=== PATIENT | male | born 1965 | race Caucasian/White ===

== ENCOUNTER 2016-05-07 09:21 | Day surgery (SDC) | payer OTHER ==
[~2016-05-07] VITALS: Ht 185.4 cm; Wt 88.5 kg
[~2016-05-07 09:21] MED LIST: 0.9% Sodium Chloride 1,000 ML IV SCH; ASPI-973 PO; CHOL100045 PO; FENO54TA4 PO; GLPZ5T PO; HYDR25SU31 RC; HYDR25TA4 PO; METF500T4 PO; SIMV40TA5 PO; Sodium Chloride LOK Flush 10 mL Syringe IV PRN; TRAM50TA2 PO; fentaNYL-PF 50 mCg/mL 2 mL Inj IVPUSH PRN
[2016-05-07] MEDS ORDERED: LIP40 PO (09:47)
[2016-05-07 09:51] VITALS: BP 135/89; PULSE 78; RESP 19; O2SAT 95
[2016-05-07] MEDS ORDERED: 0.9% Sodium Chloride 1,000 ML IV ONE (10:54)
[2016-05-07 10:59] VITALS: BP 124/74; PULSE 71; RESP 16; O2SAT 97
[2016-05-07 11:09] VITALS: BP 120/70; PULSE 70; RESP 16; O2SAT 98
[2016-05-07 11:19] VITALS: BP 125/81; PULSE 80; RESP 14; O2SAT 98
--- NOTE | 2016-05-07 11:21 | ENDO ---
[address] [address] ENDOSCOPY PROCEDURE PATIENT: PEPE CHAIDEZ : 1965 MR#: [id number] ADMIT: 05/07/2016 JOB ID: [id number] PREOPERATIVE DIAGNOSIS: Recurrent perirectal abscess. POSTOPERATIVE DIAGNOSES: 1. Pedunculated sigmoid colon polyp. 2. Sigmoid diverticulosis. 3. 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 OPERATION: Colonoscopy to cecum with snare polypectomy with cautery. SURGEON: Lauro Frost MD INDICATIONS: The patient is a 51-year-old man who has a history of a recurrent perirectal abscess. Because of that it was elected to do a colonoscopy to rule out Crohn disease. FINDINGS: He had a fair prep. The scope was advanced to the cecum. The scope was withdrawn over 6 minutes and 56 seconds. As the scope was being advanced, a pedunculated polyp measuring 6-7 mm in the sigmoid colon was identified, removed with a snare and cautery, and retrieved. No other polyps were identified. In addition to the sigmoid diverticulosis and the polyp there were no other abnormalities. Retroflexed views of the rectum showed no evidence of inflammatory bowel disease, and I could not identify the internal side of the fistula. PROCEDURE: The procedure and sedation plan was discussed with the patient and nursing staff, and a procedural time-out was held. A digital rectal exam was performed. He received 7 mg of Versed and 150 mcg of fentanyl. The Olympus PCF H 180 AL video colonoscope was passed transanally, advanced to the cecum, with results of procedures as discussed above. IMPRESSION: 1. Pedunculated cecal polyp. Pathology pending. 2. Sigmoid diverticulosis. 3. 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 PLAN: Tomorrow he is going to the operating room for evaluation under anesthesia with possible fistulotomy. Based on this study, he would need to have a colonoscopy in five years.
[2016-05-08] MEDS ORDERED: SIMV40TA5 PO (09:13)
--- NOTE | 2016-05-08 14:58 | PATH ---
SURGICAL PATHOLOGY Attending Physician:Valeria Doran CASE STATUS: Signed Out PATIENT NAME: PEPE CHAIDEZ PID: [id number] : 1965 DATE COLLECTED:05/07/2016 17:28 SPECIMEN: Colon, Biopsy CLINICAL HISTORY: A: SIGMOID POLYP FINAL DIAGNOSIS: Sigmoid Colon Polyp: Tubular adenoma. ICD10: D12.5 GROSS DESCRIPTION: The specimen is received in one formalin filled container labeled with the patient's name, sublabeled "sigmoid polyp" and consists of a 0.6 x 0.5 x 0.5 CM portion of tissue which is entirely submitted in one cassette. 05/07/[address] [facility] ICD-9 CODES: CPT CODES: 1: 93331 Electronically Signed Out Bossman Momin MD [facility] Pathology [facility] [address], [place] [address] Technical component performed at [facility], [facility] [address], [place], [address]
== END 2016-05-07 23:59 | disposition home or self-care (01) ==
LOC: END 09:21
PROVIDERS: ATTEND Surgery
DX: D12.5 Benign neoplasm of sigmoid colon (principal); K57.30 Diverticulosis of large intestine without perforation or abscess without bleeding; K61.1 Rectal abscess; E11.9 Type 2 diabetes mellitus without complications; I10 Essential (primary) hypertension; F17.210 Nicotine dependence, cigarettes, uncomplicated; Z79.82 Long term (current) use of aspirin; Z79.899 Other long term (current) drug therapy
CPT/HCPCS: 45385; 99153; G0500; J2250; J3010; J7030

== ENCOUNTER 2016-05-08 08:52 | Day surgery (SDC) | payer OTHER ==
[~2016-05-08] VITALS: Ht 185.4 cm; Wt 88.6 kg
[2016-05-08] VITALS (8 sets, daily range): BP systolic 117–140; BP diastolic 67–92; PULSE 73–85; RESP 12–18; O2SAT 94–100
[~2016-05-08 08:52] MED LIST changes: -0.9% Sodium Chloride 1,000 ML IV SCH; +CeFAZolin 2 Gm/50 mL D5W IV Premix IV ONE; -HYDR25SU31 RC; +LIP40 PO; -SIMV40TA5 PO; -Sodium Chloride LOK Flush 10 mL Syringe IV PRN; -fentaNYL-PF 50 mCg/mL 2 mL Inj IVPUSH PRN
[2016-05-08] MEDS ORDERED: Ondansetron 2 mg/mL 2 mL Inj ONE (08:53)
[2016-05-08] MEDS ORDERED: fentaNYL-PF 50 mCg/mL 2 mL Inj ONE (08:53)
[2016-05-08] MEDS ORDERED: Propofol 10,000 mCg/mL 20 mL Inj ONE (08:53)
[2016-05-08] MEDS: Lactated Ringer's 1,000 ML IV SCH ×2 (08:55→11:27)
[2016-05-08] MEDS ORDERED: SIMV40TA5 PO (09:13)
--- NOTE | 2016-05-08 11:19 | PCM.HPANE ---
Patient Data Surgeon Admitting Provider: Attending Provider:Lauro Frost MD Primary Care Physician:Farhan Carney MD Other Provider:Elba Diana Anesthesia Reason for Visit Perirectal Abscess Ht/WT & BMI Weight (Kilograms): 88.6 Body Mass Index .00 Allergies Coded Allergies: No Known Drug Allergies (Verified Allergy, Unknown, 05/06/16) Past Anesthesia History Anesthesia History: Denies:: Anesthesia Reactions, Fam Anesthesia Reaction, Malignant Hyperthermia Diabetes History Hx Diabetes?: Yes Type of Diabetes: Type II Glycemic Control: Oral Medication Current Bedside Blood Glucose: 258 MRSA MRSA: No Medications Blood Thinner: Aspirin Hypertension Medication: Yes (HCTZ) Home Meds Incl Beta Barbra: No Reported Medications Simvastatin 40 Mg Colskk52 Mg PO HS 30 Days Ref 0 05/08/16 Cholecalciferol (Vitamin D3) (Vitamin D)1,000 Unit Capsule1,000 Unit PO DAILY # 1 BOTTLE Ref 0 05/06/16 Tramadol 50 Mg Wphjbb82 Mg PO DAILY PRN For Pain Ref 0 05/06/16 Metformin 500 Mg Fjhnpl149 Mg PO BID Ref 0 05/06/16 Hydrochlorothiazide 25 Mg Cuqngf05 Mg PO DAILY 30 Days Ref 0 05/06/16 Glipizide 5 Mg Tablet5 Mg PO DAILY 30 Days 05/06/16 Fenofibrate (Lofibra)54 Mg Ctyaxe84 Mg PO DAILY 05/06/16 Aspirin 81 Mg Hajbui67 Mg PO DAILY Ref 0 05/06/16 Discontinued Reported Medications Atorvastatin (Lipitor)40 Mg Gfrlqu21 Mg PO DAILY Ref 0 05/07/16 Simvastatin 40 Mg Zmrror87 Mg PO HS 30 Days Ref 0 05/06/16 Hydrocortisone Acetate (Anusol-Hc)25 Mg Supp.rect25 Mg RC BID 05/06/16 History History of ENT Problems?: Yes HEENT History: Positive for:: Hearing Problem Denies:: Cataracts (S/P RT EYE PROCEDURE) Hx of Heart Problems?: Yes Cardiovascular History: Positive for:: Hypertension Denies:: Heart Murmur Hx of Respiratory Problem?: No Respiratory History: Positive for:: Use of C-PAP Machine (SIMI+ W/ CPAP) Hx Neurologic Problems?: No Neurological History: Denies:: CVA Hx of GI Problems?: Yes Gastrointestinal History: Positive for:: Gall Bladder Disease (S/P SARA) Denies:: Cirrhosis Rectal Bleeding (RECURRENT RADU-RECTAL ABCESS=CURRENT PROBLEM) Hx of Problems?: No Male Hx: Denies:: Prostate Problems Scrotal Mass Testicular Surgery Skin History: Denies:: History Skin Disorders? Pressure Ulcers Hx Musculoskeletal Problems?: Yes Musculoskeletal History: Positive for:: Degenerative Joint (HX BILAT SHOULDER PAIN) Denies:: Back Injury Hx of Psycho/Social Problems?: No Psycho Social History: Denies:: Hx Depression Hx Surgeries?: Yes Hx Any Other Health Problems?: No Other History: Denies:: Cancer Endocrine Disease Hospitalization Thyroid Disease History Blood Transfusions: Denies:: Blood Transfusions Hx Diabetes: YesBedside Blood Glucose: 258 Hx Alcohol Use: Yes (OCCASSONALLY)Alcoholic Drinks Per Day: 4X/YRHx Substance Use: NoHave You Smoked inLast 12 mo: YesApprox How Many Cigarettes/day: 1 PPD Stop/Bang Treated for Sleep Apnea?: Yes Do You Have a CPAP Machine?: Yes S-Snoring: Do You Snore Loudly: Yes T-Tired: feel tired, fatigued: Yes O-Obsered: Observed not breath: Yes P-Blood Pressure: treated: Yes A- Age over 50: No N- Neck Large Circumference: No G- Gender Male: Yes Risk Assessment Category Category 1A: Patient has history of documented sleep apnea, and HAS NOT received any narcotic, sedative or anesthesia administration during this stay. Category 1B: Patient has history of documented sleep apnea, and HAS received any narcotic , sedative or anesthesia administration during this stay Category 2: Patient has SUSPECTED Obstructive Sleep Apnea, and HAS received any narcotic , sedative or anesthesia administration during this stay. Category 3: Patient has SUSPECTED Obstructive Sleep Apnea and HAS NOT received narcotic, sedative or anesthesia administration during this stay. Category 4: Outpatient in Procedural Areas with known sleep apnea or who screen positive for High Risk via the STOP/BANG questionnaire. Exam Exam Vital Signs Vital Signs Date Time Temp Pulse Resp B/P Pulse Ox O2 Delivery O2 Flow Rate FiO2 05/08/16 09:30 CPAP/BIPAP 05/08/16 09:30 36.5 79 18 118/75 94 Room Air General Appearance: Alert, Oriented X3, Cooperative HEENT/AIRWAY: MP 2 Lungs: Clear to Auscultation, Clear to Percussion Heart: Exam Unremarkable, Regular Rate/Rhythm, Normal S1 Meds/Labs/Diagnostics Admission Meds Current Medications Lactated Ringer's (Lr) 1,000 ml @ 120 mls/hr Q8H20M IV Last administered on t 08:55; Start 05/08/16 at 05:00; Stop 05/08/16 at 13:19 Bedside Blood Glucose: 258 Plan Impression Patient chart reviewed, patient interviewed and anesthestic plan with risks, benefits, and alternatives discussed, and informed consent obtained. NPO Status: POP AT 0855 ASA Physical Status: ASA3 Severe Disease Anesthetic Plan: GA Bene/Risks/Altern/Consents: Yes HP Complete Prior to Induction: Yes Farhan Landa MD May 08, 2016 11:19
[2016-05-08] MEDS ORDERED: Bupivacaine-MPF 0.5% W/EPI 30 mL Inj INFILTRATE ONE (12:04)
[2016-05-08] MEDS ORDERED: Lactated Ringer's 1,000 ML IV SCH (12:24)
[2016-05-08] MEDS ORDERED: Lactated Ringer's 500 ML IV PRN (12:24)
[2016-05-08] MEDS ORDERED: Ondansetron 2 mg/mL 2 mL Inj IVPUSH PRN (12:25)
[2016-05-08] MEDS ORDERED: HYDROmorphone 1 mg/mL Inj IVPUSH PRN (12:25)
[2016-05-08] MEDS ORDERED: fentaNYL-PF 50 mCg/mL 2 mL Inj IVPUSH PRN (12:25)
[2016-05-08] MEDS ORDERED: MetoCLOpramide 5 mg/mL 2 mL Inj IVPUSH PRN (12:25)
[2016-05-08] MEDS ORDERED: Phenylephrine 10,000 mCg/mL Inj IVPUSH PRN (12:25)
[2016-05-08] MEDS ORDERED: EPHEDrine Sulfate 50 mg/mL Inj IVPUSH PRN (12:25)
[2016-05-08] MEDS ORDERED: Dexamethasone 4 mg/mL Inj IVPUSH PRN (12:25)
--- NOTE | 2016-05-08 12:29 | PCM.ANEP1 ---
Post Anesthesia Phase 1 PACU Phase 1 Assessment Vital Signs Vital Signs Date Time Temp Pulse Resp B/P Pulse Ox O2 Delivery O2 Flow Rate FiO2 05/08/16 09:30 CPAP/BIPAP 05/08/16 09:30 36.5 79 18 118/75 94 Room Air Anesthetic Administered: GA Level of Alertness: Sleeping, hard to arouse CHAVEZ's with Equal Strength: Yes Pain: No Nausea or Vomiting: No Airway Device: Oralpharangeal Airway Oxygen Delivery: Simple Mask Lungs: Clear to Auscultation, Clear to Percussion Dermatome Level: Full Sensation Farhan Landa MD May 08, 2016 12:29
--- NOTE | 2016-05-08 13:06 | OP ---
[address] [address] OPERATIVE REPORT PATIENT: PEPE CHAIDEZ : 1965 MR#: [id number] ADMIT: 05/08/2016 JOB ID: [id number] DATE OF SURGERY: 05/08/2016 PREOPERATIVE DIAGNOSIS(ES): Recurrent perirectal abscesses. POSTOPERATIVE DIAGNOSIS(ES): Recurrent perirectal abscesses. PROCEDURE: 1. Evaluation under anesthesia. 2. Incision and drainage of two sinus tracts. 3. Anoscopy. SURGEON: Lauro Frost MD CLEARANCE REP: Gus Shukla PA-C INDICATION: A 51-year-old man who has had intermittent development of perianal abscesses. He has non-insulin dependent diabetes mellitus and is a daily user of tobacco. In the office I noticed what appeared to be a sinus tract along the left lateral anal margin. I recommended a colonoscopy to rule out Crohn disease. That was done yesterday and there was no evidence of Crohn disease, but he did have a polyp in the sigmoid colon that was removed. Pathology is pending but I am sure it has no relation to his other problem. Also yesterday on retroflexed views I did not see any obvious internal drainage site. After discussing options with the patient it was elected to proceed with an evaluation under anesthesia and possible fistulotomy. FINDINGS: He actually had three small sinus tracts, none which communicated to the dentate line. One was at the left posterior lateral anal margin. With him in lithotomy, it would be the 4 o'clock position. He had another one at the 8 o'clock position and an essentially insignificant one at about the 5 o'clock position. The dentate line appeared normal. I injected peroxide through the two larger tracts and there was no communication to the dentate line. DESCRIPTION OF PROCEDURE: The SCOAP checklist was completed at the beginning and end of the operation. LMA anesthetic was induced. He was placed in lithotomy position and prepped and draped in the usual fashion. In that position I could clearly see the two larger sinus tracts; but, having described them as larger, they were actually quite small, they were just larger than the 3rd one. I was able to get a probe into the two larger tracts. I then inserted an anoscope and then into the tracts I inserted a 22-gauge Angiocath and injected peroxide and as stated above there was no peroxide draining to the dentate line, particularly at the posterior midline dentate line. I then opened the tracts as far as the probes would go and with that I could not establish more proximal extension of the tracts. The tracts did not communicate to each other. I then got hemostasis using cautery. I injected a total of 30 cc of 0.5% bupivacaine with epinephrine alongside the tracts and in the posterior midline. The estimated blood loss was less than 10 cc. There were no apparent complications. He was returned to the recovery room in stable condition with the final sponge, needle, and instrument counts announced as correct. Critical assistance provided by Gus Shukla, ALEJANDRO RICHMOND
[2016-05-08] MEDS ORDERED: HYDROcodone-APAP 5-325 mg Tablet PO PRN (13:40)
--- NOTE | 2016-05-08 13:45 | PCM.ANEP2 ---
Post Anesthesia Evaluation ASA/CMS Post Anesthesia VS in Patient's Normal Range?: Yes Resp Stable; Airway Patent?: Yes CV Function & Hydration Stable: Yes Mental Status Recovered?: Yes Pain control Satisfactory?: Yes N/V Control Satisfactory?: Yes Farhan Landa MD May 08, 2016 13:45
== END 2016-05-08 23:59 | disposition home or self-care (01) ==
LOC: SAS 08:52
PROVIDERS: ATTEND Surgery
DX: K60.3 Anal fistula (principal); E11.9 Type 2 diabetes mellitus without complications; Z86.010 Personal history of colon polyps; Z79.84 Long term (current) use of oral hypoglycemic drugs; F17.210 Nicotine dependence, cigarettes, uncomplicated
CPT/HCPCS: 46270; J0690; J2250; J2405; J7120